=== PATIENT | male | born 1940 | race African-American/Black ===

== ENCOUNTER → 2017-03-17 | Outpatient (CLI) | payer MEDICARE, OTHER ==
[~2017-03-17] MED LIST: ASPIRIN 81 MG PO; FLON0.053; LISI10TA PO; PRAZ5 PO; PRAZ5CAP PO; PROS5TAB2 PO; VIAG25TA PO; ZOCO40TA PO
[2017-03-17 09:53] LABS: BLOOD, URINE NEG (NEG); GLUCOSE,URINE NEG (NEG); KETONE, URINE NEG (NEG); NITRITE,URINE NEG (NEG); URINE COLOR YELLOW (YELLW/STRAW)
[2017-03-17 09:55] LABS: AUTOMATED NEUTROPHIL # 3.9 TH/MM3 (1.8-7.7); BASOPHIL % 0.5 % (0.0-2.0); EOSINOPHIL # 0.1 TH/MM3 (0-0.4); EOSINOPHIL % 1.6 % (0.0-4.0); HEMATOCRIT 40.3 % (39.0-51.0); HEMO FLAGS DIFF FINAL; LYMPH % 36.8 % (9.0-44.0); LYMPHOCYTE # 2.8 TH/MM3 (1.0-4.8); MEAN CELL VOLUME 82.7 FL (80.0-100.0); MEAN CORPUSCULAR HEMOGLOBIN 27.2 PG (27.0-34.0); MEAN CORPUSCULAR HGB CONC 32.9 % (32.0-36.0); MONO % 9.9 % (0.0-8.0); NEUT % 51.2 % (16.0-70.0); PLATELET COUNT 286 TH/MM3 (150-450); RED BLOOD COUNT 4.87 MIL/MM3 (4.50-5.90); RED CELL DISTRIBUTION WIDTH 13.4 % (11.6-17.2); WHITE BLOOD COUNT 7.5 TH/MM3 (4.0-11.0)
[2017-03-17 09:58] LABS: COMMENT (UR) CULT NOT INDICATED; CULTURE IF INDICATED CULT NOT INDICATED
[2017-03-17 10:11] LABS: ALT (GPT) 23 U/L (12-78); ANION GAP 7 MEQ/L (5-15); AST (GOT) 40 U/L (15-37); BICARBONATE 26.1 MEQ/L (21.0-32.0); BLOOD UREA NITROGEN 18 MG/DL (7-18); CHLORIDE 102 MEQ/L (98-107); GLOMERULAR FILTRATION RATE 69 ML/MIN (>89); GLUCOSE,FASTING 104 MG/DL (74-99); SODIUM (NA) 135 MEQ/L (136-145)
[2017-03-17 10:21] LABS: ALKALINE PHOSPHATASE 67 U/L (45-117); HDL CHOLESTEROL 41.8 MG/DL (40.0-60.0); LDL CHOLESTEROL 111 MG/DL (0-99); TOTAL BILIRUBIN ADULT 0.7 MG/DL (0.2-1.0)
[2017-03-17 15:01] LABS: HEMOGLOBIN A1a 1.2 %; HEMOGLOBIN A1b 1.9 %; HEMOGLOBIN Ao 84.2 %; HEMOGLOBIN LA1C 2.1 %; HEMOGLOBIN P3 3.8 %
== END ==
LOC: CLAB 09:11
PROVIDERS: ATTEND Internal Medicine
DX: I10 Essential (primary) hypertension (principal); E78.5 Hyperlipidemia, unspecified; M10.9 Gout, unspecified; R73.01 Impaired fasting glucose
CPT/HCPCS: 36415; 80053; 80061; 81001; 83036; 84443; 84550; 85025

== ENCOUNTER 2017-04-08 09:29 | Emergency (ER) | payer MEDICARE, OTHER ==
[~2017-04-08] VITALS: Ht 177.8 cm; Wt 89.0 kg
[~2017-04-08 09:29] MED LIST changes: -PRAZ5CAP PO
[2017-04-08 09:31] VITALS: BP 145/91; PULSE 100; RESP 16; TEMP 98.7; O2SAT 97
[2017-04-08 09:33] VITALS: BP 153/71; PULSE 88; RESP 16; TEMP 97.8; O2SAT 97
[2017-04-08] MEDS ORDERED: PRAZ5CAP PO (09:35)
[2017-04-08] MEDS ORDERED: ZOCO40TA PO (09:35)
[2017-04-08] MEDS ORDERED: LISI10TA PO (09:35)
--- NOTE | 2017-04-08 09:42 | PD ---
HPI Chief Complaint: Pain: Acute or Chronic Time Seen by Provider: 09:34 Travel History International Travel<30 days: No Contact w/Intl Traveler<30days: No Traveled to known affect area: No History of Present Illness HPI 76-year-old male presents with left elbow and wrist pain after he had a fall last week. He states he has not seen a physician for this as he thought it would get better on his own. Pain is worse with movement. Quality of pain is sharp. Severity is moderate. He denies other modifying factors. He states he did not hit his head or black out. He denies being on blood thinner medication. He states he fell when he tripped over something. PFSH Past Medical History Cardiovascular Problems: Yes Past Surgical History Surgical History: No Previous Surgery Social History Tobacco Use: No Allergies-Medications (Allergen,Severity, Reaction): Coded Allergies: No Known Allergies (Verified , 04/08/17) Reported Meds & Prescriptions Reported Meds & Active Scripts Active Reported Prazosin (Prazosin HCl) 5 Mg Cap 5 Mg PO BID Zocor (Simvastatin) 40 Mg Tab 40 Mg PO DAILY Lisinopril-Hctz 10-12.5 Mg Tab 1 Tab PO DAILY Review of Systems Except as stated in HPI: all other systems reviewed are Neg Physical Exam Narrative General: 76 y/o patient in no apparent distress Skin: trauma noted to left hand and wrist with swelling, mild swelling over left elbow Eyes: Pupils equal NECK: no pain with palpation, nexus criteria negative Cardiovascular: Regular rate and rhythm Respiratory: Normal respiratory effort noted Abdomen: soft, nontender, nondistended Extremities: Pain with palpation of left elbow and wrist, no lacerations over, neurovascularly intact, no pain with palpation of other joints Neuro: awake, alert, sensation and motor grossly intact Data Data Last Documented VS Vital Signs Date Time Temp Pulse Resp B/P (MAP) Pulse Ox O2 Delivery O2 Flow Rate FiO2 04/08/17 09:35 78 16 04/08/17 09:33 97.8 153/71 (98) 97 04/08/17 09:31 Room Air Orders Orders Wrist, Complete ([id number]) (04/08/17 ) Elbow, Complete (4 Vws) (04/08/17 ) MDM Medical Decision Making Medical Screen Exam Complete: Yes Emergency Medical Condition: Yes Medical Record Reviewed: Yes (past history confirmed) Interpretation(s) left elbow and wrist xray no acute Differential Diagnosis Fracture, strain, sprain Narrative Course Will check x-rays and reevaluate xrays without fracture, no scaphoid or other pain at this time, Patient denies any new complaints, all questions answered. Patient knows that follow up is incumbent on them and to return to the emergency room immediately if new or worsening symptoms develop. Patient given strict return precautions, vitals reviewed and are normal, agrees to further workup as an outpatient. Diagnosis Primary Impression: Left arm pain Patient Instructions: General Instructions Additional Instructions: tylenol as needed, follow with primary this week, return as needed Med/Other Pt SpecificInfo: No Change to Meds Disposition: 01 DISCHARGE HOME Condition: Stable Bessy Alves MD Apr 08, 2017 09:42
--- NOTE | 2017-04-08 10:55 | RADRPT ---
EXAM DATE/TIME: 04/08/2017 09:49 [facility] COMPARISON: No previous studies available for comparison. INDICATIONS : Left elbow pain after falling one week ago. MEDICAL HISTORY : None. SURGICAL HISTORY : None. ENCOUNTER: Initial ACUITY: 1 day PAIN SCORE: 6/10 LOCATION: Left elbow FINDINGS: The osseous structures are grossly intact. There is no significant joint effusion. Note is made of some calcification within the triceps tendon at its insertion on the olecranon. CONCLUSION: 1. Degenerative changes as above. No acute fracture identified. Ravin Garcia MD on April 08, 2017 at 10:53 Board Certified Radiologist. This report was verified electronically.
--- NOTE | 2017-04-08 10:56 | RADRPT ---
EXAM DATE/TIME: 04/08/2017 09:51 [facility] COMPARISON: ELBOW LEFT COMPLETE (4 VWS), April 08, 2017, 9:49. INDICATIONS : Left wrist pain after falling one week ago. MEDICAL HISTORY : None. SURGICAL HISTORY : None. ENCOUNTER: Initial ACUITY: 1 week PAIN SCORE: 6/10 LOCATION: Left wrist FINDINGS: The osseous structures are intact. The alignment is anatomic. No acute fracture is seen. The bony mineralization is within normal limits. CONCLUSION: 1. No acute fracture of the left wrist is identified. Ravin Garcia MD on April 08, 2017 at 10:54 Board Certified Radiologist. This report was verified electronically.
[2017-04-08 11:50] VITALS: BP 130/84; TEMP 97.8
== END 2017-04-08 11:50 | disposition home or self-care (01) ==
LOC: NEPC 09:29
DX: M79.602 Pain in left arm (principal); W01.0XXA Fall on same level from slipping, tripping and stumbling without subsequent striking against object, initial encounter
CPT/HCPCS: 73080; 73110; 99283

== ENCOUNTER → 2017-09-16 | Outpatient (CLI) | payer MEDICARE, OTHER ==
[~2017-09-16] MED LIST changes: -ASPIRIN 81 MG PO; -FLON0.053; -PRAZ5 PO; +PRAZ5CAP PO; -PROS5TAB2 PO; -VIAG25TA PO
[2017-09-16 09:02] LABS: BILIRUBIN, URINE NEG (NEG); BLOOD, URINE NEG (NEG); GLUCOSE,URINE NEG (NEG); KETONE, URINE NEG (NEG); NITRITE,URINE NEG (NEG); URINE COLOR YELLOW (YELLW/STRAW); URINE LEUKOCYTE ESTERASE NEG (NEG)
[2017-09-16 09:12] LABS: AUTOMATED NEUTROPHIL # 3.9 TH/MM3 (1.8-7.7); BASOPHIL % 0.5 % (0.0-2.0); EOSINOPHIL # 0.1 TH/MM3 (0-0.4); HEMATOCRIT 43.7 % (39.0-51.0); HEMOGLOBIN 14.5 GM/DL (13.0-17.0); LYMPH % 35.6 % (9.0-44.0); LYMPHOCYTE # 2.5 TH/MM3 (1.0-4.8); MEAN CELL VOLUME 82.4 FL (80.0-100.0); MEAN CORPUSCULAR HEMOGLOBIN 27.4 PG (27.0-34.0); MEAN CORPUSCULAR HGB CONC 33.2 % (32.0-36.0); MEAN PLATELET VOLUME 7.1 FL (7.0-11.0); MONO % 7.3 % (0.0-8.0); MONOCYTE # 0.5 TH/MM3 (0-0.9); NEUT % 55.6 % (16.0-70.0); PLATELET COUNT 316 TH/MM3 (150-450); RED BLOOD COUNT 5.31 MIL/MM3 (4.50-5.90); RED CELL DISTRIBUTION WIDTH 13.8 % (11.6-17.2); WHITE BLOOD COUNT 7.1 TH/MM3 (4.0-11.0)
[2017-09-16 09:30] LABS: ALBUMIN 3.8 GM/DL (3.4-5.0); AST (GOT) 25 U/L (15-37); BICARBONATE 26.9 MEQ/L (21.0-32.0); BLOOD UREA NITROGEN 17 MG/DL (7-18); CALCIUM 9.1 MG/DL (8.5-10.1); CHLORIDE 102 MEQ/L (98-107); CREATININE 1.29 MG/DL (0.60-1.30); GLOMERULAR FILTRATION RATE 66 ML/MIN (>89); GLUCOSE,FASTING 128 MG/DL (74-99); SODIUM (NA) 138 MEQ/L (136-145)
[2017-09-16 09:32] LABS: ALT (GPT) 22 U/L (12-78); CHOLESTEROL 190 MG/DL (120-200); TRIGLYCERIDES 147 MG/DL (42-150)
[2017-09-16 09:41] LABS: ALKALINE PHOSPHATASE 67 U/L (45-117); CHOLESTEROL/ HDL RATIO 4.09 RATIO; HDL CHOLESTEROL 46.4 MG/DL (40.0-60.0); LDL CHOLESTEROL 114 MG/DL (0-99); TOTAL BILIRUBIN ADULT 0.4 MG/DL (0.2-1.0); TOTAL PROTEIN 8.7 GM/DL (6.4-8.2)
[2017-09-16 16:21] LABS: HEMOGLOBIN A1C 6.2 % (4.3-6.0)
== END ==
LOC: CLAB 08:13
DX: I10 Essential (primary) hypertension (principal); E78.5 Hyperlipidemia, unspecified; M10.9 Gout, unspecified; R73.01 Impaired fasting glucose
CPT/HCPCS: 36415; 80053; 80061; 81001; 83036; 84443; 84550; 85025